=== PATIENT | male | born 1980 | race African-American/Black ===

== ENCOUNTER 2020-06-07 21:40 | Emergency (ER) | payer OTHER ==
[2020-06-07 21:59] VITALS: BP 140/96; PULSE 116; TEMP 101.6; BMI 42.0
[2020-06-07] MEDS ORDERED: ACETAMINOPHEN 500 MG TABLET (FP) ONE (22:03)
[2020-06-07] MEDS ORDERED: ACETAMINOPHEN 500 MG TABLET (FP) PO ONE (22:04)
--- NOTE | 2020-06-07 22:06 | PDOC ---
Rapid Medical Evaluation Chief Complaint: Cold Symptoms Time Seen by Provider: 06/07/20 22:01 Medical Evaluation: Allergies Allergy/AdvReac Type Severity Reaction Status Date / Time No Known Allergies Allergy Verified 06/07/16 17:14 Vital Signs Temp Pulse Resp BP Pulse Ox 101.6 F H 116 H 19 140/96 99 06/07/20 21:57 06/07/20 21:57 06/07/20 21:57 06/07/20 21:57 06/07/20 21:57 06/07/20 22:01 HPI: COVID-19 CDC guideline data points: The patient is a 39yoM presents with suspected COVID-19 with associated symptoms of fever, sore throat complicated by this/these comorbidities: none. ROS: NEGATIVE: difficulty breathing, shortness of breath, chest pain, lightheadedness, dizziness, nausea, vomiting and diarrhea. Other 12 point ROS reviewed and negative. Exam: General: NAD, Well-Appearing, Awake, Alert Oriented x3. Vital signs stable. ENT: No rhinorrhea or nasal congestion. Oropharynx erythematous with tonsillar exudate present to the right tonsil. Neck: FROM, no midline tenderness. Tender anterior cervical lymphadenopathy present. Lungs: Clear to auscultation bilaterally without wheezes, rhonchi or rales. Normal excursion. Patient is able to speak in full sentences. Heart: HR: 116. Regular rhythm, S1-S2 present, no murmurs rubs or gallops. Abdomen: Non-distended. MSK/Extremities: No decrease ROM, No obvious deformities. No obvious cyanosis noted. Neuro: Normal Gait, Cranial Nerves II through XII Grossly Intact. Skin: No obvious rashes, bruising. Color Normal Appearing. Assessment/Plan: [Cough/fever] Patient has a history of this/these comorbidities: none, denies recent travel and known COVID exposure. Patient does meet testing criteria at this time. ASSESSMENT: Denies recent travel and known Covid exposure. Treatment: Given high pretest probability of streptococcal infection I will defer rapid strep testing and treat prophylactically. COVID swab obtained. Tylenol 1 g orally now Discharge home with prescription for amoxicillin 500 mg twice daily for 10 days. Discharge Disposition - Diagnosis Counseled about COVID-19 virus infection Pharyngitis Qualifiers: Pharyngitis/tonsillitis etiology: unspecified etiology Qualified Code(s): J02.9 - Acute pharyngitis, unspecified - Discharge Dispostion Disposition: HOME Condition at time of disposition: Stable Decision to Admit order: No - Prescriptions Prescriptions: Amoxicillin - [Amoxicillin 500mg Capsule -] 500 mg PO BID #20 capsule - Referrals - Patient Instructions Additional Instructions: Take amoxicillin as prescribed. Salt water garggles. Throw away your toothbrush in 3 days and start using a new toothbrush. No sharing of drinks, utensils or toothbrushes. Take Motrin as directed by electrophonic engineer's instructions. Return to ED for worsening fevers, worsening sore throat, chest pain, shortness of breath or any other concerns. Your COVID-19 testing will take 24 to 48 hours to get a result. You will be called with the results regardless of the results. - Post Discharge Activity
== END 2020-06-07 22:22 | disposition home or self-care (01) ==
LOC: JER 21:40
DX: J02.9 Acute pharyngitis, unspecified (principal)
CPT/HCPCS: 99283-25; U0003